=== PATIENT | female | born 1990 | race Caucasian/White ===

== ENCOUNTER 2020-05-02 01:20 | Inpatient (IN) | payer OTHER, SELFPAY ==
[2020-05-02] VITALS (176 sets, daily range): BP systolic 89–142; BP diastolic 47–110; PULSE 79–130; RESP 18; TEMP 36.3–37.4; O2SAT 94–100; BMI 37.3
--- NOTE | 2020-05-02 01:59 | LDADM ---
This patient, Priya Guan, was admitted to Labor/Delivery/Recovery 103 on 05/02/20 at 01:20. Plans for labor, pain management and were discussed with patient. Patient/family oriented to hospital policies and general routines including ID bracelet, bed and alarms, visiting hours, pain management, procedures, bathroom and other care routines, personal items, smoking policy, room service/diet and guest tray routines, infant security routines, and visiting hours. Patient/Family are encouraged to report perceived risks to care and to ask questions if they do not understand what they are told or what they should do. See OBIX for further documentation.
[2020-05-02 02:23] LABS: Basophils Percent Auto 0.2 % (0.2-1.2); Eosinophils Percent Auto 0.3 % (0-4.4); Hematocrit 34.2 % (37.0-47.0); Hemoglobin 11.5 g/dL (12.0-15.0); Immature Granulocyte Absolute 0.02 K/mm3 (0.00-0.031); Immature Granulocyte Percent A 0.2 % (0-0.5); Lymphocytes Absolute Auto 1.48 K/mm3 (0.9-3.2); Lymphocytes Percent Auto 15.2 % (18.3-44.2); Mean Corpuscular HGB Conc 33.6 g/dl (32-36); Mean Corpuscular Volume 83.2 fl (80-100); Mean Platelet Volume 10.3 fl (7.4-10.4); Monocytes Absolute Auto 0.7 K/mm3 (0.1-0.6); Monocytes Percent Auto 7.4 % (2.6-8.5); Neutrophils Absolute Auto 7.5 K/mm3 (1.3-6.7); Neutrophils Percent Auto 76.7 % (45.5-73.1); Platelet Count Result 224 k/mm3 (150-375); Red Blood Count 4.11 M/mm3 (4.2-5.4); Red Cell Distribution Width 13.6 % (11.5-14.5); White Blood Count 9.7 K/mm3 (4.5-10.0)
[2020-05-02] MEDS: LACTATED RINGERS 1,000 ML 125 ML IV CONT ×2 (02:26→04:29)
--- NOTE | 2020-05-02 02:54 | WPDANESEPPF ---
Anes - Initial Pre Proc Eval Procedure: labor epidural Date/Time: 05/02/20 02:54 Surgeon: Kaushik Breaux MD Pre Op Diagnosis: labor pain Pre Op Diagnosis: Leaking, Contractions Patient Data Age: 30 Gender: F Height: 1.63 m Weight: 98.5 kg Last Vital Signs Pulse 97 05/02/20 02:51 BP 132/77 05/02/20 02:51 Pulse Ox 100 05/02/20 02:53 Allergies Allergy/AdvReac Type Severity Reaction Status Date / Time doxycycline Allergy Hives Verified 04/10/20 13:33 ibuprofen Allergy Swelling Verified 04/10/20 13:33 of Lip/Tongue/Throat Home Medications Medication Instructions Recorded Confirmed Type PNV cmb#95-ferrous fumarate-FA 1 tablet PO DAILY 04/10/20 04/10/20 History [] escitalopram oxalate [Lexapro] 10 mg PO DAILY 04/10/20 04/10/20 History Laboratory Tests 05/02/20 05/02/20 02:16 02:16 WBC 9.7 K/mm3 K/mm3 (4.5-10.0) RBC 4.11 M/mm3 L M/mm3 (4.2-5.4) Hgb 11.5 g/dL L g/dL (12.0-15.0) Hct 34.2 % L % (37.0-47.0) MCV 83.2 fl fl (80-100) MCH 28.0 pg pg (26-34) MCHC 33.6 g/dl g/dl (32-36) RDW 13.6 % % (11.5-14.5) Plt Count 224 k/mm3 k/mm3 (150-375) MPV 10.3 fl fl (7.4-10.4) Immature Gran % (Auto) 0.2 % % (0-0.5) Neut % (Auto) 76.7 % H % (45.5-73.1) Lymph % (Auto) 15.2 % L % (18.3-44.2) [place] % (Auto) 7.4 % % (2.6-8.5) Eos % (Auto) 0.3 % % (0-4.4) Baso % (Auto) 0.2 % % (0.2-1.2) Lymph # (Auto) 1.48 K/mm3 K/mm3 (0.9-3.2) [place] # (Auto) 0.7 K/mm3 H K/mm3 (0.1-0.6) Eos # (Auto) 0.0 K/mm3 K/mm3 (0-0.3) Baso # (Auto) 0.0 K/mm3 K/mm3 (0.0-0.1) Abs Immat Gran (auto) 0.02 K/mm3 K/mm3 (0.00-0.031) Absolute Neuts (auto) 7.5 K/mm3 H K/mm3 (1.3-6.7) Absolute Nucleated RBC 0.0 K/mm3 K/mm3 (0.0-0.012) Nucleated RBC % 0.0 % % (0.0-0.2) RPR Pending Patient hx anesthesia problems: none Family hx anesthesia problems: none [facility] Past Medical History Medical History (Updated 05/02/20 @ 02:53 by Vishnu Olivera DO) Anxiety Depression Family History Family History (Updated 04/10/20 @ 13:44 by Willie Joseph RN) Father Hypertension High cholesterol Grandparent Diabetes mellitus Social History Social History Smoking status: Never smoker Second hand tobacco smoke exposure: No Substance use: never Gender identity (if verbalized by the patient): Female Spiritual care concerns: No Anes - Eval Final PreProcedure Day of Procedure 05/02/20 02:54 Patient weight: obese ASA classification: II Anesthesia type and monitoring: regional epidural Informed Consent: The patient's anesthetic plan and its attendant risks and benefits were discussed with the patient/family/POA. Questions were solicited and answers provided to the satisfaction of the patient/family/POA.
[2020-05-02 06:50] LABS: Rapid Plasma Reagin Non-Reactive (NonReactive)
--- NOTE | 2020-05-02 06:50 | WPDOBADMIT ---
Obstetrics - Admit Note Admission Note: record reviewed. Additions to the history and/or subsequent changes in the physical findings follow. 30 y/o at 39 3/7 weeks here after a gush of fluid last evening. SROM diagnosed. She was admitted and has received an epidural for pain control. GBS neg. AVSS NST reactive TOCO: contractions every 2-4 min ABD soft, nontender, gravid, vertex EXT nontender Cervix 6-7/90/-1. Vertex. A: IUP at term with SROM / labor. P: Augment labor as needed. Anticipate .
[2020-05-02] MEDS: OXYTOCIN 30 UNITS/NS 500 ML 30 UNITS/500 ML BAG IV CONT (08:26)
[2020-05-02] MEDS: OXYTOCIN 30 UNITS/NS 500 ML 30 UNITS/500 ML BAG 125 UNITS IV CONT (13:00)
--- NOTE | 2020-05-02 13:24 | PM.OBPRVD ---
OB - Delivery Note Procedure Delivery date: 05/02/20 Procedure: Excision of perineal skin tag Induction method: none Delivery augmentation: pitocin Delivery monitor: external FHT, external uterine and internal uterine Route of delivery: Laceration Description: Perineal - 2nd Degree Delivery repair: vicryl (3-0) Specimen: Yes (cord blood, perineal skin tag) Quantitative Blood Loss (ml): 260 Anesthesia type: Epidural Disposition: PACU Complications: None Narrative: 30 y/o at 39 3/7 weeks gestation who presented to the hospital after a gush of fluid. SROM was diagnosed. She received an epidural for pain control. Oxytocin was administered intravenously for labor augmentation. Amniotomy of a forebag was performed with return of clear fluid. Her labor progressed and her cervix dilated completely. She pushed with good effort and delivered the 's head to the perineum and the nuchal cord x 2 was splinted. The body delivered and the cord was reduced. The nose and mouth were bulb suctioned. After a delay, the cord was clamped and cut. The was handed off the field. Cord blood was collected. The placenta delivered spontaneously and was grossly normal in appearance. The usual 3 vessel cord was noted. A second degree midline perineal laceration was sustained. This was reapproximated using 3 0 Vicryl in the usual layered fashion. Excellent hemostasis resulted as did excellent reapproximation of the normal anatomy. An 8mm flesh-colored skin tag on the left perineum was sharply excised. A single, interrupted suture of the same material was used to reapproximate the wound edges. Needle and instrument counts were correct. The patient was taken to recovery room in stable condition. The infant went to the nursery in stable condition. I was present and scrubbed for the entire delivery. Baby Date of : 05/02/20 Time of : 12:09 Weeks of gestation at delivery: 39 Infant gender: Female Weight (pounds): 8 Weight (ounces): 4 presentation: vertex position: Left Occiput Anterior Placenta delivery description: Spontaneous and Normal Configuration cord vessel description: 3 Vessels, Nuchal Cord (x2) and Delayed Cord Clamping score one minute: 9 score five minutes: 9
[2020-05-02] MEDS: ACETAMINOPHEN 325 MG TABLET 650 MG PO ×2 (14:35→19:42)
[2020-05-02] MEDS: BENZOCAINE 20% AER SPR (*SP) 56 GM CAN 1 SPRAY TOPICAL (14:36)
[2020-05-02] MEDS: WITCH HAZEL 40 PADS 1 PAD TOPICAL (14:37)
--- NOTE | 2020-05-02 15:38 | PC.NURSE ---
Patient transferred to post room #291 via wheelchair. Support person present. Oriented to unit, room, information board, rooming in, admission packet and security measures. Patient verbalizes understanding.
--- NOTE | 2020-05-02 17:26 | PM.OBDSVD ---
DS: Admitting Diagnosis Admitting Diagnosis Admitting Diagnosis: IUP at 39 3/7 weeks SROM DS: Discharge Diagnosis Discharge Diagnosis (1) (normal spontaneous vaginal delivery): Code(s): O80 - Encounter for full-term uncomplicated delivery Status: Acute OB - DS: Summary OB Procedures : None OB Procedures Intrapartum: Spontaneous Vag Delivery OB Procedures: : None DS: Data Data Completed and Pending Labs on day of discharge: Labs from last 24 hours 05/02/20 05/02/20 05/02/20 02:16 02:16 02:16 WBC 9.7 RBC 4.11 L Hgb 11.5 L Hct 34.2 L MCV 83.2 MCH 28.0 MCHC 33.6 RDW 13.6 Plt Count 224 MPV 10.3 Immature Gran % (Auto) 0.2 Neut % (Auto) 76.7 H Lymph % (Auto) 15.2 L [place] % (Auto) 7.4 Eos % (Auto) 0.3 Baso % (Auto) 0.2 Lymph # (Auto) 1.48 [place] # (Auto) 0.7 H Eos # (Auto) 0.0 Baso # (Auto) 0.0 Abs Immat Gran (auto) 0.02 Absolute Neuts (auto) 7.5 H Absolute Nucleated RBC 0.0 Nucleated RBC % 0.0 RPR Non-reactive Blood Type A Positive Antibody Screen Negative Discharge Plan Discharge Attending physician on discharge: Kaushik Breaux Discharging Clinician: Kaushik Breaux Patient Disposition: Home, Self-Care Activity: pelvic rest Diet: regular Discharge Instructions: Call or return if temperature above 100.4? F, increased abdominal pain, increased vaginal bleeding or any new problems. Stand Alone Forms: General Discharge Information Follow-up/Referrals: Kaushik Breaux MD [Physician] - 6 Weeks Discharge Medications: New hydrocodone-acetaminophen 5-325 mg tablet 1 tablet PO Q4H Qty: 20 RF: 0 ferrous sulfate 325 mg (65 mg iron) tablet 325 mg PO DAILY Qty: 30 RF: 0 No Action PNV cmb#95-ferrous fumarate-FA [] 28 mg iron- 800 mcg Tablet 1 tablet PO DAILY RF: 0 escitalopram oxalate [Lexapro] 10 mg Tablet 10 mg PO DAILY RF: 0 Date of admission: 05/02/20 01:20 Primary Care Provider: Mj,Jenny Admitting Provider: Kaushik Breaux Attending physician on admission: Kaushik Breaux Condition: Stable
[2020-05-03 04:50] VITALS: BP 121/74; PULSE 102; RESP 18; TEMP 36.6; O2SAT 100
[2020-05-03] MEDS: ACETAMINOPHEN 325 MG TABLET 650 MG PO (05:06)
[2020-05-03 05:20] LABS: Hematocrit 28.1 % (37.0-47.0); Hemoglobin 9.3 g/dL (12.0-15.0)
[2020-05-03 07:25] VITALS: BP 114/74; PULSE 92; RESP 18; TEMP 37.1; O2SAT 97
--- NOTE | 2020-05-03 09:07 | WPDANLDPN2 ---
Anes-Prog Note L&D Date/Time: 05/03/20 09:07 Comfortable throughout: labor and delivery Neuraxial method: epidural Epidural/Spinal procedure site: clean & non-tender Neuro status: Neuro function grossly intact. Cardiovascular status: normal Respiratory status: normal Airway patency: baseline Mental status: baseline Post-Op hydration status: normal Vital Signs: Last Vital Signs Temp 36.6 C 05/03/20 04:50 Pulse 102 H 05/03/20 04:50 Resp 18 05/03/20 04:50 BP 121/74 05/03/20 04:50 Pulse Ox 100 05/03/20 04:50 Pain score (VAS): 03/09 Post-procedural complaints: none Patient feedback: Patient satisfied with anesthetic care.
[2020-05-03] MEDS: MULTIVIT/MIN/PREN/FOL AC/IRON TABLET 1 TAB PO (09:43)
[2020-05-03] MEDS: POLYSACCHARIDE IRON COMPLEX 150 MG CAPSULE PO (09:43)
[2020-05-03] MEDS: DOCUSATE SODIUM 100 MG CAPSULE PO (09:43)
[2020-05-03] MEDS: BENZOCAINE 20% AER SPR (*SP) 56 GM CAN 1 SPRAY TOPICAL (09:44)
[2020-05-03] MEDS: WITCH HAZEL 40 PADS 1 PAD TOPICAL (09:44)
[2020-05-03 10:00] VITALS: PULSE 92; RESP 18; O2SAT 97
[2020-05-03] MEDS: HYDROcodone/acetaminophen (*CRX) 5-325 MG TABLET 1 TAB PO ×2 (10:02→15:26)
[2020-05-03] MEDS: ESCITALOPRAM OXALATE 10 MG TABLET PO (10:02)
--- NOTE | 2020-05-03 11:22 | PM.OBPNVD ---
OB - PN: Subj Subjective Date/time seen: 05/03/20 11:22 Narrative: Pain OK. Thinks she would like to go home. OB - PN: Obj Data Labs CBC & Chem 7: 05/03/20 05:03 Labs: Laboratory Results - last 24 hr 05/03/20 05:03 Hgb 9.3 L Hct 28.1 L OB - PN A/P Plan Comments: A: PPD#1, doing well. P: Home to f/u 6 weeks. Exam Psych: Other: AVSS ABD soft, nontender, fundus firm EXT nontender
[2020-05-03 12:40] VITALS: BP 110/70; PULSE 86; RESP 18; TEMP 36.9; O2SAT 96
[2020-05-06 08:59] VITALS: BP 114/62; PULSE 81; RESP 20; TEMP 36.8; O2SAT 99
== END 2020-05-03 18:13 | disposition home or self-care (01) | DRG 807 ==
LOC: ANHLDR 01:28 → ANHOB2 16:09
PROVIDERS: Admitting Provider Obstetrics & Gynecology; PCP Nurse Practitioner Family; Visit Provider Obstetrics & Gynecology
DX: O99.72 Diseases of the skin and subcutaneous tissue complicating childbirth (principal); Z37.0 Single live birth; Z3A.39 39 weeks gestation of pregnancy; N90.89 Other specified noninflammatory disorders of vulva and perineum; O99.214 Obesity complicating childbirth; E66.9 Obesity, unspecified; O70.1 Second degree perineal laceration during delivery; O69.81X0 Labor and delivery complicated by cord around neck, without compression, not applicable or unspecified; O36.8330 Maternal care for abnormalities of the fetal heart rate or rhythm, third trimester, not applicable or unspecified; O77.0 Labor and delivery complicated by meconium in amniotic fluid; O99.344 Other mental disorders complicating childbirth; F41.8 Other specified anxiety disorders
CPT/HCPCS: 36415; 84112; 85014; 85018; 85025; 86592; 86850; 86900; 86901; 88305; A9270; J2590; J2795; J7120

== ENCOUNTER 2020-05-07 13:33 | Outpatient (RCR) | payer OTHER, SELFPAY ==
--- NOTE | 2020-05-07 15:44 | PC.NURSE ---
IN 1005 OUT 1055 HISTORY: Pt. delivered at [facility] at 39 weeks. had no complications after delivery. Mother had no complications after delivery. is now 4 days/weeks old. appears to be well cared for. Infant will be seen by ICP at 1 week. Pt. visit after follow up. Mother reports: She had difficulties with latch from the first feeding and was given a nipple shield. Mother continues to use shield each feeding, will be supplemented EBM/formula by FOB while mother is pumping. Mother's milk is in and feels infant is more awake and eagerly latching. Mother is unsure if she should continue to supplement or if she can wean from shield. Mother wishes: Discontinue supplementation and nipple shield use. Currently at 6 wets per day and 6 yellow seedy stools per day. weight: 8#3 Last Weight: 8#1 OBSERVATION: Mother is engorged, demonstrated self expression before putting to breast to soften breast to obtain a deep latch. Assisted with infant to breast. Reviewed positioning/alignment in cross cradle, holding breast in U hold and guided asymmetrical latch on. Infant was able to latch correctly within a few attempts without shield. Infant nursed eagerly, with steady draws and frequent swallowing noted. Infant quickly began to slow with long pausing. Suggested to stimulate while feeding to keep awake and nursing effectively for increased stimulation and increased intake. Infant responded with burst of effective nursing with intermittent long pausing. Discussed how infant suck swallow relates to infant intake, and milk supply and well as maintaining deep latch. Reviewed signs of a correct latch, effective nursing and suck swallow ratio. Infant was able to maintain latch. Mother reported tenderness at times, infant had slipped to shallow latch. Demonstrated how to adjust latch more deeply while feeding. Mother quickly reports she can feel infant is latched more deeply and has minimal tenderness. Mother was able to switch infant to right breast and latch infant correctly without assist. Infant had an effective feeding for 45 minutes on both breasts and was content and sleeping when done with feeding. Parents both state this is one of 's best feedings. Suggested to hold on supplementation if is content, allow infant to feed on both breasts each feeding up to 40-50 minutes. PLAN: Mother will follow above feeding plan using techniques for deeper latch and keeping awake and effectively feeding each feeding. Mother will initiate pumping after feedings to soften if needed and offering EBM when does not settle after 40 minutes of feeding. Mother will call with further questions or concerns. Follow up phone call scheduled for Tuesday. Initialized on 05/07/20 12:50 - END OF NOTE PLAN: Mother will follow above feeding plan using techniques for deeper latch. Mother will call with further questions or concerns. Follow up visit/phone call scheduled for ///////
== END 2020-07-07 07:43 | disposition home or self-care (01) ==
LOC: ANHOBOP 13:33
PROVIDERS: PCP Nurse Practitioner Family; Visit Provider Pediatrics
DX: Z39.1 Encounter for care and examination of lactating mother (principal)
CPT/HCPCS: 99212; G0463

== ENCOUNTER 2021-09-28 18:51 | Emergency (ER) | payer OTHER, SELFPAY ==
[2021-09-28 19:01] VITALS: BP 125/68; PULSE 86; RESP 16; TEMP 37.1; O2SAT 100
--- NOTE | 2021-09-28 19:04 | ED.URI ---
HPI - URI/Sore Throat General Chief Complaint: Upper Respiratory Infection Stated Complaint: Cough Time Seen by Provider: 09/28/21 19:04 Source: patient and RN notes reviewed Mode of arrival: ambulatory Limitations: no limitations History of Present Illness HPI Narrative: 31-year-old female presented for complaint of intermittent episodes of cough and chest tightness with exertion for the last 2 days. Cough is nonproductive. Using albuterol inhaler more often, up to 3 times yesterday. She denies shortness of breath, wheezing, nausea, vomiting, fevers or chills. Endorses 10 days ago she tested positive for COVID, symptoms were mild at that time and did not have cough. States similar symptoms occurred after viral infection Mar 2021, for which she took abx and steroids and symptoms improved. MD elicited complaint: cough Related Data Home Medications Medication Instructions Recorded Confirmed albuterol sulfate 90 mcg/actuation 2 puff inhalation DIRECTED 09/28/21 09/28/21 aerosol inhaler venlafaxine 75 mg capsule,extended 75 mg PO DAILY 09/28/21 09/28/21 release 24 hr Allergies Allergy/AdvReac Type Severity Reaction Status Date / Time doxycycline Allergy Hives Verified 09/28/21 18:53 ibuprofen Allergy Swelling Verified 09/28/21 18:53 of Lip/Tongue/Throat Review of Systems Review of Systems: CONSTITUTIONAL: Denies malaise, chills, sweats, fever EYES: Denies visual changes, redness, or discharge ENT: Denies rhinorrhea, congestion, sinus pain, otalgia, sore throat CARDIOVASCULAR: Denies chest pain, palpitations, edema RESPIRATORY: Denies dyspnea SKIN: Denies rash or itching MUSCULOSKELETAL: Denies myalgia NEUROLOGIC: Denies headache PMFSH Past Medical History Medical History Anxiety Depression Family History Family History Father Hypertension High cholesterol Grandparent Diabetes mellitus Social History Social History Smoking status: Never smoker Second hand tobacco smoke exposure: No Substance use: never Gender identity (if verbalized by the patient): Female Spiritual care concerns: No Exam Narrative: GENERAL: well-appearing EYES: conjunctivae clear ENT: Mucous membranes moist. CHEST: Clear to auscultation, breath sounds equal. No wheezing, rhonchi, rales, or stridor. No respiratory distress, speaks in full sentences. HEART: Regular rate and rhythm. No murmur heard. SKIN: Warm, dry, no rash. NEURO: Alert and oriented x3. PSYCH: Normal mood and affect Course Course Emergency Course: Patient is aware of diagnosis, understands and agrees to treatment plan. Anticipatory guidance given. Patient agrees to follow-up as directed and is aware of reasons to seek care at the emergency department. Portions of this record may have been created with voice recognition software Level of Care: Express Care Visit Vital Signs Vital signs: Vital Signs Temperature 98.7 F 09/28/21 19:01 Pulse Rate 86 09/28/21 19:01 Respiratory Rate 16 09/28/21 19:01 Blood Pressure 125/68 09/28/21 19:01 Pulse Oximetry 100 09/28/21 19:01 Oxygen Delivery Room Air 09/28/21 19:01 Temperature 98.7 F 09/28/21 19:01 Pulse Rate 86 09/28/21 19:01 Respiratory Rate 16 09/28/21 19:01 Blood Pressure 125/68 09/28/21 19:01 Pulse Oximetry 100 09/28/21 19:01 Oxygen Delivery Room Air 09/28/21 19:01 reviewed MDM - URI/Sore Throat MDM Narrative Medical decision making narrative: Advised supportive measures, reviewed Rx's, and signs/symptoms to go to the ER. Pt is appropriate for outpt treatment and f/u. Differential Diagnosis Differential diagnosis: Likely upper respiratory infection, sinusitis and viral infection Discharge Plan Discharge Clinical Impression: Bronchoconstriction Patient
== END 2021-09-28 19:18 | disposition home or self-care (01) ==
PROVIDERS: Emergency Provider Nurse Practitioner Family; PCP Family Medicine
DX: J98.01 Acute bronchospasm (principal); F41.9 Anxiety disorder, unspecified; F32.A Depression, unspecified
CPT/HCPCS: 99213; G0463

== ENCOUNTER 2021-09-29 18:26 | Emergency (ER) | payer OTHER, SELFPAY ==
--- NOTE | ~2021-09-29 | CT_ITS ---
EXAMINATION: CTA chest PE protocol DATE: 09/29/2021 20:50 INDICATION: SOA TECHNIQUE: Computed tomography angiography (CTA) of the chest was performed with 100 mL Omnipaque-350 intravenous contrast timed to evaluate the pulmonary arteries. Coronal maximum intensity projection 3D-reconstructions were created by the technologist. The dose-length product (DLP) was 225.36 mGy-cm. Automated exposure control and iterative reconstruction technique were employed. COMPARISON: X-ray chest, same date. FINDINGS: Lung parenchyma and airways: Mild dependent atelectasis. Pleura: Unremarkable. Thoracic inlet, axillae and chest wall: Unremarkable. Thoracic aorta: Normal. Mediastinum: Normal. Heart and pericardium: Normal. Coronary artery calcifications: Absent. Upper abdomen: No significant finding. Bones: No acute osseous finding. Pulmonary arteries: Study quality: Adequate. No pulmonary emboli detected. IMPRESSION: No CT evidence of acute pulmonary embolus. Reviewed, dictated and finalized at location K.
--- NOTE | ~2021-09-29 | XR_ITS ---
EXAMINATION: XR chest 2V Exam Date/Time: 09/29/2021 18:50 CDT HISTORY: COVID+ 11 DAYS AGO, INCREASED SOB,CHEST PRESSURE/RT ADB PAIN Comparison: None available. RESULT: Lines, tubes, and devices: None. Lungs and pleura: Clear. Cardiomediastinal silhouette: Normal. Other: No acute osseous or upper abdominal finding. IMPRESSION: No acute cardiopulmonary process. Reviewed, dictated and finalized at location K.
[2021-09-29 18:30] VITALS: BP 134/83; PULSE 125; RESP 18; TEMP 36.6; O2SAT 99
--- NOTE | 2021-09-29 18:30 | ECG_ITS ---
Measurements Intervals [place] Rate: 118 P: 51 AL: 102 QRS: 21 QRSD: 84 T: -1 QT: 340 QTc: 477 Interpretive Statements SINUS TACHYCARDIA WITH SHORT AL INTERVAL POSSIBLE LEFT ATRIAL ENLARGEMENT NONSPECIFIC ST & T-WAVE ABNORMALITY BORDERLINE ECG NO PREVIOUS ECG AVAILABLE FOR COMPARISON Electronically Signed On 09-30-2021 12:20:04 CDT by Jorge Alfaro M.D.
[2021-09-29 18:48] LABS: Basophils Percent Auto 0.2 % (0.2-1.2); Hematocrit 42.7 % (37.0-47.0); Hemoglobin 14.5 g/dL (12.0-15.0); Immature Granulocyte Absolute 0.02 K/mm3 (0.00-0.031); Immature Granulocyte Percent A 0.3 % (0-0.5); Lymphocytes Absolute Auto 0.73 K/mm3 (0.9-3.2); Lymphocytes Percent Auto 11.8 % (18.3-44.2); Mean Corpuscular Hemoglobin 28.7 pg (26-34); Mean Corpuscular Volume 84.6 fl (80-100); Mean Platelet Volume 9.1 fl (7.4-10.4); Monocytes Absolute Auto 0.1 K/mm3 (0.1-0.6); Monocytes Percent Auto 1.6 % (2.6-8.5); Neutrophils Absolute Auto 5.3 K/mm3 (1.3-6.7); Neutrophils Percent Auto 86.1 % (45.5-73.1); Platelet Count Result 302 k/mm3 (150-375); Red Blood Count 5.05 M/mm3 (4.2-5.4); Red Cell Distribution Width 12.7 % (11.5-14.5); White Blood Count 6.2 K/mm3 (4.5-10.0)
[2021-09-29 18:56] VITALS: BP 130/70; PULSE 107; RESP 17; O2SAT 96
[2021-09-29 18:58] LABS: Prothrombin Time 13.1 Seconds (11.1-14.7)
[2021-09-29 18:59] VITALS: O2SAT 96
[2021-09-29 18:59] LABS: Partial Thromboplastin Time 24.2 SECONDS (22.3-36.8)
[2021-09-29 19:09] LABS: Alanine Aminotransferase 20 U/L (6-35); Albumin Level 5.2 g/dL (3.5-5.1); Alkaline Phosphatase 75 U/L (38-126); Anion Gap 14 mmol/L (8-16); Aspartate Amino Transferase 26 U/L (14-36); Bilirubin,Total 0.3 mg/dL (0.2-1.3); Blood Urea Nitrogen 12 mg/dL (7-17); Carbon Dioxide 24 mmol/L (22-30); Chloride 102 mmol/L (98-107); Estimated CRCL calculation 115 ml/min; Estimated Glomerular Filt Rate > 60; Glucose 157 mg/dL (65-110); Lipase 90 U/L (23-300); Potassium 3.8 mmol/L (3.4-5.0); Sodium 140 mmol/L (137-145)
[2021-09-29 19:46] LABS: Troponin I < 0.012 ng/mL (0.000-0.034)
--- NOTE | 2021-09-29 19:55 | ED.SOB ---
HPI - SOB/Dyspnea General Chief Complaint: Shortness of Breath/Dyspnea Stated Complaint: CP, abdominal pain, sob Time Seen by Provider: 09/29/21 19:02 History of Present Illness HPI Narrative: Patient is a 31-year-old female who presents ER with shortness of breath and abdominal pain. Patient was diagnosed with COVID-19 11 days ago. Over the last 3 days she has felt more chest tightness and shortness of breath and has been using her inhaler at home. Today she started having pain in her right lower chest and right upper quadrant of the abdomen. No radiation. Not associated with eating or drinking. Notices it more when she is doing mechanical movements of the right side of her body. Denies trauma. Patient does report occasional cough that is nonproductive. No lower extremity swelling or calf pain. Related Data Home Medications Medication Instructions Recorded Confirmed albuterol sulfate 90 mcg/actuation 2 puff inhalation DIRECTED 09/28/21 09/28/21 aerosol inhaler venlafaxine 75 mg capsule,extended 75 mg PO DAILY 09/28/21 09/28/21 release 24 hr Allergies Allergy/AdvReac Type Severity Reaction Status Date / Time doxycycline Allergy Hives Verified 09/28/21 18:53 ibuprofen Allergy Swelling Verified 09/28/21 18:53 of Lip/Tongue/Throat Review of Systems Review of Systems: All systems reviewed & are unremarkable except as noted in HPI and below Constitutional: Constitutional: Denies chills, Denies fatigue and Denies fever(s) ENT: Denies nasal congestion and Denies sore throat Cardiovascular: Cardiovascular: Reports chest pain, Denies rapid heart rate and Denies radiating jaw, neck or arm pain Respiratory: Respiratory: Denies chest congestion, Reports cough, Reports dyspnea and Reports wheezing Gastrointestinal: Gastrointestinal: Reports abdominal pain, Denies nausea and Denies vomiting Genitourinary: Genitourinary: Denies nocturia and Denies dysuria [facility] Past Medical History Medical History (Updated 09/29/21 @ 21:37 by Win Pat MD) Anxiety Depression Exercise-induced asthma Surgical History Surgical History (Updated 09/29/21 @ 19:56 by Win Pat MD) History of appendectomy Family History Family History Father Hypertension High cholesterol Grandparent Diabetes mellitus Social History Social History Smoking status: Never smoker Second hand tobacco smoke exposure: No Substance use: never Gender identity (if verbalized by the patient): Female Spiritual care concerns: No Exam Narrative: GENERAL: Well-appearing, well-nourished, and in no acute distress. HEAD: Normocephalic, atraumatic. EYES: PERRL and EOMI. CHEST: Clear to auscultation. No respiratory distress. No reproducible chest wall tenderness. HEART: Tachycardic and regular. Normal peripheral pulses. ABDOMEN: Soft, nontender, nondistended. EXTREMITIES: Normal range of motion. No edema. SKIN: Warm, dry, no rash. NEURO: Alert and oriented x3. PSYCH: Normal mood and affect. Course Course Emergency Course: Patient resting comfortably. Informed of results. Tachycardia improved with fluids. Discharge home. Recommend outpatient ultrasound to rule out gallstones. LFTs normal. Vital Signs Vital signs: Vital Signs Temperature 98 F 09/29/21 18:30 Pulse Rate 125 H 09/29/21 18:30 Respiratory Rate 18 09/29/21 18:30 Blood Pressure 134/83 09/29/21 18:30 Pulse Oximetry 99 09/29/21 18:30 Oxygen Delivery Room Air 09/29/21 18:30 Temperature 98 F 09/29/21 18:30 Pulse Rate 107 H 09/29/21 18:56 Respiratory Rate 17 09/29/21 18:56 Blood Pressure 130/70 09/29/21 18:56 Pulse Oximetry 96 09/29/21 18:59 Oxygen Delivery Room Air 09/29/21 18:59 MDM - SOB/Dyspnea Lab Data Result diagrams: 09/29/21 18:38 09/29/21 18:38
[2021-09-29 21:55] VITALS: BP 120/72; PULSE 72; RESP 16; O2SAT 98
[2021-09-29 22:06] LABS: Troponin I < 0.012 ng/mL (0.000-0.034)
== END 2021-09-29 21:57 | disposition home or self-care (01) ==
PROVIDERS: Emergency Medicine; Emergency Provider Emergency Medicine; PCP Family Medicine
DX: R07.81 Pleurodynia (principal); R10.11 Right upper quadrant pain; Z86.16 Personal history of COVID-19; F41.9 Anxiety disorder, unspecified; F32.A Depression, unspecified; J45.990 Exercise induced bronchospasm
CPT/HCPCS: 36415; 71046; 71275; 80053; 81025; 83690; 84484; 85025; 85380; 85610; 85730; 93005; 99284; Q9967

== ENCOUNTER 2022-01-31 15:02 | Emergency (ER) | payer OTHER, SELFPAY ==
--- NOTE | ~2022-01-31 | XR_ITS ---
EXAMINATION: XR chest 2V Exam Date/Time: 01/31/2022 15:30 TAKER OFF HISTORY: sometimes prod cough x 9 days non smoker pt shielded Comparison: 09/29/2021. RESULT: Lines, tubes, and devices: None. Lungs and pleura: Clear. Cardiomediastinal silhouette: Stable. Other: No acute osseous or upper abdominal finding. IMPRESSION: No acute cardiopulmonary process. Reviewed, dictated and finalized at location K. R OFF
--- NOTE | 2022-01-31 15:06 | ED.URI ---
HPI - URI/Sore Throat General Chief Complaint: Upper Respiratory Infection Stated Complaint: cough Time Seen by Provider: 01/31/22 15:08 Source: patient and RN notes reviewed Mode of arrival: ambulatory Limitations: no limitations History of Present Illness HPI Narrative: 31-year-old female presents with concern for cough. Reports 7 day history of persistent cough. Reports she was diagnosed with influenza. She reports she has been taking prednisone for 3 days, started a Z-Dima yesterday, has been using albuterol without relief of her cough. MD elicited complaint: cough and sore throat Related Data Home Medications Medication Instructions Recorded Confirmed albuterol sulfate 90 mcg/actuation 2 puff inhalation DIRECTED 09/28/21 01/31/22 aerosol inhaler venlafaxine 75 mg capsule,extended 75 mg PO DAILY 09/28/21 01/31/22 release 24 hr azithromycin 250 mg tablet 250 mg PO DAILY 01/31/22 01/31/22 prednisone 20 mg tablet 20 mg PO DAILY 01/31/22 01/31/22 Allergies Allergy/AdvReac Type Severity Reaction Status Date / Time doxycycline Allergy Hives Verified 01/31/22 15:04 ibuprofen Allergy Swelling Verified 01/31/22 15:04 of Lip/Tongue/Throat Review of Systems Review of Systems: CONSTITUTIONAL: Reports malaise, low-grade fever. EYES: Denies visual changes, redness, or discharge. ENT: Reports rhinorrhea, congestion, sore throat. CARDIOVASCULAR: Denies chest pain, palpitations, or edema. RESPIRATORY: Reports persistent cough, episodic shortness of breath GASTROINTESTINAL: Denies abdominal pain, nausea, vomiting, diarrhea SKIN: Denies rash or itching. MUSCULOSKELETAL: Denies myalgia. NEUROLOGIC: Denies headache. All systems reviewed & are unremarkable except as noted in HPI and below PMFSH Past Medical History Medical History (Updated 01/31/22 @ 16:11 by Marilyn Mcwilliams NP) Anxiety Depression Exercise-induced asthma Surgical History Surgical History (Updated 09/29/21 @ 19:56 by Win Pat MD) History of appendectomy Family History Family History Father Hypertension High cholesterol Grandparent Diabetes mellitus Social History Social History Smoking status: Never smoker Second hand tobacco smoke exposure: No Substance use: never Gender identity (if verbalized by the patient): Female Spiritual care concerns: No Comments At time of signature, agree with nursing past medical, surgical, social and family history. There is no relevant family history pertinent to the presenting complaint Exam Narrative: GENERAL: Well-appearing, well-nourished, and in no acute distress. HEAD: Normocephalic EYES: PERRLA, conjunctivae clear ENT: Nares clear, turbinates edematous and erythematous, clear discharge. Mucous membranes moist. TM pearly chinchilla with dull light reflex bilaterally; no tragal tenderness. Oropharynx not erythematous without lesions. Tonsils not enlarged and without exudate, no drooling, no hoarseness, no trismus, uvula midline. NECK: Supple. No lymphadenopathy CHEST: Clear to auscultation, breath sounds equal. No wheezing, rhonchi, rales, or stridor. No respiratory distress, speaks in full sentences. Cough noted HEART: Regular rate and rhythm. No murmur heard. SKIN: Warm, dry, no rash. NEURO: Alert and oriented x3. PSYCH: Normal mood and affect Course Course Emergency Course: Patient is aware of diagnosis, understands and agrees to treatment plan. Anticipatory guidance given. Patient agrees to follow-up as directed and is aware of reasons to seek care at the emergency department. Portions of this record may have been created with voice recognition software Level of Care: Express Care Visit Vital Signs Vital signs: Reviewed. MDM - URI/Sore Throat MDM Narrative Medical decision making narrative: Differential diagnosis considered: Jj virus, st
[2022-01-31 15:10] VITALS: BP 121/71; PULSE 114; RESP 16; TEMP 37.6; O2SAT 99
[2022-01-31 15:15] VITALS: PULSE 114; RESP 16; O2SAT 99
[2022-01-31 16:00] VITALS: PULSE 108; RESP 18; O2SAT 99
== END 2022-01-31 16:20 | disposition home or self-care (01) ==
PROVIDERS: Emergency Provider Nurse Practitioner
DX: J40 Bronchitis, not specified as acute or chronic (principal); F41.9 Anxiety disorder, unspecified; F32.A Depression, unspecified; J45.909 Unspecified asthma, uncomplicated
CPT/HCPCS: 71046; 87081; 87880; 94640; 99213; G0463

== ENCOUNTER 2023-01-04 16:01 | Inpatient (IN) | payer BC, SELFPAY ==
[2023-01-04] VITALS (15 sets, daily range): BP systolic 105–125; BP diastolic 59–78; PULSE 84–112; TEMP 36.6–37.2; BMI 36.1
--- NOTE | 2023-01-04 16:37 | P.PNAN_ITS ---
Anes - Eval Pre Procedure Procedure: labor epidural Date/Time: 01/04/23 16:37 Pre Op Diagnosis: Induction of Labor Patient Data Age: 32 Gender: F Height: Weight: Allergies Allergy/AdvReac Type Severity Reaction Status Date / Time doxycycline Allergy Hives Verified 01/31/22 15:04 ibuprofen Allergy Swelling Verified 01/31/22 15:04 of Lip/Tongue/Throat latex Allergy Itching Verified 12/17/22 14:28 adhesive AdvReac Itching Verified 12/17/22 14:28 Home Medications Medication Instructions Recorded Confirmed Type escitalopram oxalate 20 mg tablet 30 mg PO DAILY 12/17/22 12/17/22 History (Lexapro) vits no.126-ferrous fum 1 tablet PO DAILY 12/17/22 12/17/22 History 28 mg iron-folic acid 800 mcg tablet (Classic ) Patient hx anesthesia problems: none Family hx anesthesia problems: none Results Review: All pre-operative results and documents have been reviewed as part of the pre- operative evaluation. PMF Past Medical History Medical History Anxiety Depression Exercise-induced asthma Surgical History Surgical History History of appendectomy Family History Family History Father Hypertension High cholesterol Grandparent Diabetes mellitus Social History Social History Smoking status: Never smoker Second hand tobacco smoke exposure: No Substance use: never Gender identity (if verbalized by the patient): Female Spiritual care concerns: No Exam Day of Procedure 01/04/23 16:37 Patient weight: obese Heart: regular rate and rhythm Lungs: normal air movement Airway: Mallampati scale Neurological: alert and oriented
[2023-01-04] MEDS: DINOPROSTONE 10 MG VAG INSERT VAGINAL (16:51)
[2023-01-04 16:52] LABS: Basophils Percent Auto 0.1 % (0.2-1.2); Eosinophils Absolute Auto 0.1 K/mm3 (0-0.3); Eosinophils Percent Auto 0.7 % (0-4.4); Hemoglobin 10.9 g/dL (12.0-15.0); Immature Granulocyte Absolute 0.02 K/mm3 (0.00-0.031); Immature Granulocyte Percent A 0.3 % (0-0.5); Lymphocytes Absolute Auto 1.19 K/mm3 (0.9-3.2); Lymphocytes Percent Auto 17.7 % (18.3-44.2); Mean Corpuscular Hemoglobin 27.3 pg (26-34); Mean Corpuscular Volume 82.7 fl (80-100); Mean Platelet Volume 10.4 fl (7.4-10.4); Monocytes Absolute Auto 0.6 K/mm3 (0.1-0.6); Monocytes Percent Auto 9.1 % (2.6-8.5); Neutrophils Absolute Auto 4.9 K/mm3 (1.3-6.7); Neutrophils Percent Auto 72.1 % (45.5-73.1); Platelet Count Result 195 k/mm3 (150-375); Red Blood Count 3.99 M/mm3 (4.2-5.4); White Blood Count 6.7 K/mm3 (4.5-10.0)
--- NOTE | 2023-01-04 17:01 | LDADM ---
This patient, Priya Guan, was admitted to Labor/Delivery/Recovery 103 on 01/04/23 at 16:01. Plans for labor, pain management and were discussed with patient. Patient/family oriented to hospital policies and general routines including ID bracelet, bed and alarms, visiting hours, pain management, procedures, bathroom and other care routines, personal items, smoking policy, room service/diet and guest tray routines, infant security routines, and visiting hours. Patient/Family are encouraged to report perceived risks to care and to ask questions if they do not understand what they are told or what they should do. See OBIX for further documentation.
[2023-01-04] MEDS: AMPICILLIN 2 GM/NS 100 ML 2 GM/100 ML BAG IVPB (17:18)
[2023-01-04] MEDS: LACTATED RINGERS 1,000 ML 125 ML IV CONT (17:18)
[2023-01-04] MEDS: AMPICILLIN 1 GM/NS 50 ML 1 GM/50 ML BAG IVPB (21:12)
[2023-01-05] VITALS (179 sets, daily range): BP systolic 89–148; BP diastolic 46–94; PULSE 73–144; RESP 16–18; TEMP 36.2–37.3; O2SAT 86–100
[2023-01-05] MEDS: fentaNYL CITRATE INJ (*CRX) 100 MCG/2 ML VIAL 50 MCG IV PUSH (00:07)
[2023-01-05] MEDS: LACTATED RINGERS 1,000 ML 125 ML IV CONT ×3 (00:36→06:18)
[2023-01-05] MEDS: AMPICILLIN 1 GM/NS 50 ML 1 GM/50 ML BAG IVPB ×2 (01:45→06:19)
[2023-01-05] MEDS: OXYTOCIN 30 UNITS/NS 500 ML 30 UNITS/500 ML BAG IV CONT (03:02)
--- NOTE | 2023-01-05 08:32 | WPDOBADMIT ---
Obstetrics - Admit Note Admission Note: record reviewed. Additions to the history and/or subsequent changes in the physical findings follow. 32 y/o at 39 1/7 weeks gestation here for induction of labor. GBS pos. Cervidil overnight, has been withdrawn, now receiving oxytocin.. Had SROM clear fluid. Comfortable with epidural. Ampicillin IV for GBS. AVSS NST reactive TOCO: contractions every 2-3 min ABD soft, nontender, gravid, vertex EXT nontender Cervix complete / +2 A: IUP at term. GBS pos. P: Ampicillin. Begin pushing.
--- NOTE | 2023-01-05 09:07 | P.PCNOB_ITS ---
OB - Vaginal Delivery Note Procedure Delivery date: 01/05/23 Induction method: Per Cervidil Protocol Delivery augmentation: Pitocin Delivery monitor: External FHT, External Uterine and Internal Uterine Route of delivery: Episiotomy description: None Laceration Description: Perineal - 2nd Degree Delivery repair: vicryl (3-0) Specimen: Yes (cord blood) Quantitative Blood Loss (ml): 240 Anesthesia type: Epidural Complications: None Narrative: 32 y/o at 39 1/7 weeks gestation who presented to the hospital for induction of labor. She received ampicillin for GBS colonization. Cervidil was placed, then withdrawn the next morning. Oxytocin was administered intravenously. She had SROM with clear fluid. She received an epidural for pain control. Her labor progressed and her cervix dilated completely. She pushed with good effort and delivered the 's head to the perineum, followed by the body. The nose and mouth were bulb suctioned. After a delay, the cord was clamped and cut. The infant was handed off the field. Cord blood was collected. The placenta delivered spontaneously and was grossly normal in appearance. The usual 3 vessel cord was noted. A second degree midline perineal laceration was sustained. This was reapproximated using 3 0 Vicryl in the usual layered fashion. Excellent hemostasis resulted as did excellent reapproximation of the normal anatomy. Needle and instrument counts were correct. The patient was taken to recovery room in stable condition. The went to the nursery in stable condition. I was present and scrubbed for the entire delivery. [place] Baby Date of : 01/05/23 Time of : 08:47 Weeks of gestation at delivery: 39 gender: Male presentation: vertex position: Right Occiput Anterior Placenta delivery description: Spontaneous and Normal Configuration Cord Vessel Description: 3 Vessels and Delayed Cord Clamping score one minute: 8 score five minutes: 9
--- NOTE | 2023-01-05 09:09 | PM.OBDSVD ---
DS: Admitting Diagnosis Discharge Date 01/06/23 Admitting Diagnosis IUP at 39 1/7 weeks GBS pos DS: Discharge Diagnosis Discharge Diagnosis (1) (normal spontaneous vaginal delivery): Code(s): O80 - Encounter for full-term uncomplicated delivery Status: Acute (2) GBS (group B Streptococcus carrier), +RV culture, currently : Code(s): O99.820 - Streptococcus B carrier state complicating Status: Acute OB - DS: Summary OB Procedures : None OB Procedures Intrapartum: Spontaneous Vag Delivery and GBS prophylaxis OB Procedures: : None Peripartum Data Laceration Description: Perineal - 2nd Degree Episiotomy description: None Time Spent with Patient Time attestation: Total time spent providing and/or coordinating discharge services: DS: Data Data Completed and Pending Labs on day of discharge: Labs from last 24 hours 01/04/23 16:40 WBC 6.7 RBC 3.99 L Hgb 10.9 L D Hct 33.0 L MCV 82.7 MCH 27.3 MCHC 33.0 RDW 13.0 Plt Count 195 MPV 10.4 Immature Gran % (Auto) 0.3 Neut % (Auto) 72.1 Lymph % (Auto) 17.7 L Lipscomb % (Auto) 9.1 H Eos % (Auto) 0.7 Baso % (Auto) 0.1 L Lymph # (Auto) 1.19 Lipscomb # (Auto) 0.6 Eos # (Auto) 0.1 Baso # (Auto) 0.0 Abs Immat Gran (auto) 0.02 Absolute Neuts (auto) 4.9 Absolute Nucleated RBC 0.0 Nucleated RBC % 0.0 RPR Pending Blood Type A Positive Antibody Screen Negative Discharge Plan Discharge Attending physician on discharge: Kaushik Breaux Discharging Clinician: Kaushik Breaux Patient Disposition: Home, Self-Care Activity: pelvic rest Diet: regular Discharge Instructions: Call or return if temperature above 100.4? F, increased abdominal pain, increased vaginal bleeding or any new problems. Stand Alone Forms: General Discharge Information Follow-up/Referrals: Kaushik Breaux MD [Physician] - 6 Weeks Discharge Medications: New hydrocodone-acetaminophen 5-325 mg tablet 1 tablet PO Q4H PRN (Reason: pain) Qty: 20 0RF ferrous sulfate 325 mg (65 mg iron) tablet 325 mg PO DAILY Qty: 30 0RF Continued escitalopram oxalate [Lexapro] 20 mg Tablet 30 mg PO DAILY Classic 28 mg iron- 800 mcg Tablet 1 tablet PO DAILY famotidine [Pepcid] 20 mg Tablet 20 mg PO DAILY PRN (Reason: Heartburn) Date of admission: 01/04/23 16:01 Primary Care Provider: Shelley,Eladia Thompson Admitting Provider: Kaushik Breaux Attending physician on admission: Kaushik Breaux Condition: Stable
[2023-01-05] MEDS: BENZOCAINE 20% AER SPR (*SP) 56 GM CAN 1 SPRAY TOPICAL (10:58)
[2023-01-05] MEDS: WITCH HAZEL 40 PADS 1 PAD TOPICAL (10:58)
[2023-01-05] MEDS: ACETAMINOPHEN 325 MG TABLET 650 MG PO (11:49)
[2023-01-05] MEDS: LANOLIN (LANSINOH) 7.5 GM CREAM 1 APPLIC TOPICAL (11:50)
--- NOTE | 2023-01-05 13:11 | PC.NURSE ---
Patient transferred to post room #277 via wheelchair. Support person present. Oriented to unit, room, information board, rooming in, admission packet and security measures. Patient verbalizes understanding.
[2023-01-05 13:48] LABS: Rapid Plasma Reagin Non-Reactive (NonReactive)
[2023-01-05] MEDS: HYDROcodone/acetaminophen (*CRX) 5-325 MG TABLET 1 TAB PO ×3 (14:08→23:38)
[2023-01-06] MEDS: HYDROcodone/acetaminophen (*CRX) 5-325 MG TABLET 1 TAB PO ×3 (05:17→12:52)
[2023-01-06 06:03] LABS: Hematocrit 31.5 % (37.0-47.0); Hemoglobin 9.8 g/dL (12.0-15.0)
[2023-01-06 07:45] VITALS: BP 125/71; PULSE 96; RESP 18; TEMP 36.5; O2SAT 99
--- NOTE | 2023-01-06 08:42 | WPDANLDPN2 ---
Anes-Prog Note L&D Date/Time: 01/06/23 08:42 Comfortable throughout: labor and delivery Neuraxial method: epidural Epidural/Spinal procedure site: clean & non-tender Neuro status: Neuro function grossly intact. Cardiovascular status: normal Respiratory status: normal Airway patency: baseline Mental status: baseline Post-Op hydration status: normal Vital Signs: Last Vital Signs Temp 36.7 C 01/05/23 23:24 Pulse 88 01/05/23 23:24 Resp 16 01/05/23 23:24 BP 114/70 01/05/23 23:24 Pulse Ox 98 01/05/23 23:24 O2 Del Method Room Air 01/04/23 17:00 Pain score (VAS): 2/10 Post-procedural complaints: none Patient feedback: Patient satisfied with anesthetic care.
[2023-01-06] MEDS: MULTIVIT/MIN/PREN/FOL AC/IRON TABLET 1 TAB PO (08:44)
[2023-01-06] MEDS: POLYSACCHARIDE IRON COMPLEX 150 MG CAPSULE PO (08:45)
[2023-01-06] MEDS: ESCITALOPRAM OXALATE 10 MG TABLET 30 MG PO (08:46)
[2023-01-06] MEDS: DOCUSATE SODIUM 100 MG CAPSULE PO (08:53)
--- NOTE | 2023-01-06 09:09 | PM.OBPNVD ---
OB - PN: Subj Subjective Date/time seen: 01/06/23 09:09 Narrative: Pain OK. Would like circumcision for son. Would like to go home. OB - PN: Obj Data Labs 01/06/23 05:29 Labs: Laboratory Results - last 24 hr 01/04/23 01/06/23 16:40 05:29 Hgb 9.8 L Hct 31.5 L RPR Non-reactive OB - PN A/P Plan Comments: A: PPD#1, doing well. P: Reviewed circ. Home to f/u 6 weeks. Exam Psych: Other: AVSS ABD soft, nontender, fundus firm EXT nontender
--- NOTE | 2023-01-06 13:28 | PC.NURSE ---
Patient viewed the discharge video Mother & Baby Care, The First Two Weeks . Patient was given the opportunity and encouraged to ask questions. Patient verbalized understanding of information shared and has been given the mother/baby guide for home reference.
--- NOTE | 2023-01-06 13:49 | PC.NURSE ---
[id number] Introductions were made, then consulted with patient to assess needs related to . Mother led the conversation with her?plans to feed?her infant, the?experience so far and her history. She has used a nipple shield, a syringe and states infant latched well for the first feeding. Mother works well with her with encouragement and education. Encouraged understanding of the benefits of skin to skin (demonstrating unwrapping infant and placing upright on her chest), stimulating with massage touch, changing positions to encourage wakefulness, how to watch for early feeding cues, responsive feeding, feeding on demand (aiming for 8-12 times in 24 hours, about every 2-3 hours), milk production, building/maintaining a milk supply, duration of feeding, signs of adequate intake/output and how to record on the feeding sheet. Reviewed positioning and ear, shoulder, hip alignment, supporting the breast to facilitate a deep latch, asymmetrical latch (off-center), leading with the chin with a big, open, wide gape and body close to mother. latched optimally to the right breast in cross cradle position. Education given to mother of how to visualize suck/swallow ratios and listen for drinking at the breast. was able to maintain latch without discomfort to mother. Nipple care reviewed with optimal latch and good positioning. Reviewed good handwashing when or touching the breast/nipples to prevent infection. Resources used to facilitate learning were used with the tool, mom and baby guide. Mother voiced understanding of skin to skin, stimulating with massage touch, responsive feedings, hand expressed colostrum, talking to infant to encourage if it has been 2 -2.5 hours since the start of the last , to call if infant does not latch, or if there is discomfort with . Resources provided for inpatient/outpatient with the feeding sheet, name written on the communication board and the mom/baby guide. Parents voiced understanding of information, demonstrated learning and will call if there is a request for assistance. Reported to the Primary RN.
[2023-01-07 14:53] VITALS: BP 125/71; PULSE 97; RESP 18; TEMP 37; O2SAT 99
== END 2023-01-06 16:00 | disposition home or self-care (01) | DRG 807 ==
LOC: ANHLDR 01-05 09:11 → ANHOB2 01-05 11:21
PROVIDERS: Admitting Provider Obstetrics & Gynecology; PCP Family Medicine; Visit Provider Obstetrics & Gynecology
DX: O99.824 Streptococcus B carrier state complicating childbirth (principal); Z37.0 Single live birth; Z3A.39 39 weeks gestation of pregnancy; O70.1 Second degree perineal laceration during delivery
CPT/HCPCS: 36415; 85014; 85018; 85025; 86592; 86850; 86900; 86901; A9270; J0290; J2590; J2795; J3010; J7120

== ENCOUNTER 2023-05-26 10:00 | Outpatient (RCR) | payer BC, SELFPAY ==
--- NOTE | 2023-03-14 14:24 | OPREHPOC ---
Outpatient Therapy Plan of Care This is a Multidisciplinary Plan of Care that may contain components documented by all disciplines (PT, OT, and ST.) PT Problem 1 PT Problem #1 Knowledge Deficit PT Goal 1 Goal 1. Patient will perform independent HEP Target Visit 12 PT Problem 2 PT Problem #2 Pain PT Goal 1 Goal 1. Patient will be able to do all typical ADL's with pain no higher than 2/10 Target Visit 12 PT Problem 3 PT Problem #3 Impaired Strength PT Goal 1 Goal 1. Improve windy hip abduction and extension to 5/5 to perform lifting and squatting activities 2. Improve diastasis closure to less than 2 finger width Target Visit 12
--- NOTE | 2023-03-14 14:24 | PTOPEVAL1 ---
Assessment and note entered by Josefina Gray DPT Evaluation Information Assessment Status Evaluation Subjective Information Pt is 9 weeks after her second baby. Pt reports feeling a lot of weakness and low ab/hip discomfort with certain activities, like stairs, getting in/out of bed or a car, carrying her child , squatting. Highest pain 6/10 and lowest 0-1/10. Urinary incontinence but not daily. Urinates 5 times a day, usually none at night. Can hold urge to void as long as needed. Denies pain with urination. BM usually daily, some pain and reports hemorrhoids. No significant history of pelvic pain, did have tearing with deliveries that caused pain for a short time. Pt has had 2 vaginal deliveries. 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 Patient goal: get rid of pain, build strength back up. Pt will be going back to work in 3 weeks. Returns to [place] in a few weeks. Reported Pain Level Pain Score 0: Self Report Assessment PT Clinical Summary The patient is presenting to skilled therapy with reports of low abdomen and hip pain at 9 weeks . She presents with significantly decreased hip, core, and pelvic floor strength which are contributing to her difficulty with activities like car transfers and carrying her children. She will highly benefit from therapy to address these impairments in order to reduce pain and return to full function. Plan of Care Interventions Electrical Stimulation,Hot Pack/Cold Pack,Manual Therapy,Neuro Re-education,Patient/Caregiver Education,Therapeutic Activities,Therapeutic Exercise PT Services Indicated Yes Treatment Frequency and 1-2 times a week for 6-12 visits Duration These treatments will address the objective and functional deficits as defined above. The patient will be advanced safely and appropriately in order for the patient to progress towards his/her prior level of function. Additional exercises will be introduced and as well as a comprehensive home exercise program upon discharge, if needed, ?to ensure carryover of functional gains achieved in the clinic. This treatment plan has been reviewed and agreement upon by the patient.
--- NOTE | 2023-03-21 09:37 | PCPTNOTE ---
Patient canceled appointment on 03/21/23 due to weather.
--- NOTE | 2023-04-14 08:04 | PCPTNOTE ---
Patient called to cancel appointment 04/14/23 due to personal conflict.
--- NOTE | 2023-04-21 09:15 | PCPTNOTE ---
Patient called to cancel appointment 04/21/23 due to sick kids.
--- NOTE | 2023-04-28 13:10 | OPREHPOC ---
Outpatient Therapy Plan of Care This is a Multidisciplinary Plan of Care that may contain components documented by all disciplines (PT, OT, and ST.) PT Problem 1 PT Problem #1 Knowledge Deficit PT Goal 1 Goal 1. Patient will perform independent HEP Target Visit 12 Progress Met PT Problem 2 PT Problem #2 Pain PT Goal 1 Goal 1. Patient will be able to do all typical ADL's with pain no higher than 2/10 Target Visit 12 Progress Partially Met PT Problem 3 PT Problem #3 Impaired Strength PT Goal 1 Goal 1. Improve windy hip abduction and extension to 5/5 to perform lifting and squatting activities 2. Improve diastasis closure to less than 2 finger width Target Visit 12 Progress Partially Met
--- NOTE | 2023-04-28 13:10 | PTOPPROG ---
Assessment and note entered by Josefina Gray DPT Evaluation Information Assessment Status Progress Subjective Information Pt reports highest pain in the last week 7/10, worst after being home and active and carrying her kids. Lowest pain in the last week 0/10. Pain is not as high as often and does see a difference when she is able to be consistent with her exercises. Reports no incontinence for several weeks. Denies true pelvic pain, pain is anterior hip/groin. Assessment PT Clinical Summary The patient has made good progress in therapy and reports her pain is not as high as often. She demonstrates significant improvement to her bilateral hip strength and minor closure to her diastasis recti. Due to her progress but continued pain after standing and carrying her children, she will benefit from further therapy to reduce pain and return to full function. Plan of Care Interventions Electrical Stimulation,Gait Training,Hot Pack/Cold Pack,Manual Therapy,Neuro Re-education,Patient/ Caregiver Education,Therapeutic Activities, Therapeutic Exercise PT Services Indicated Yes Treatment Frequency and 1 time a week for 4 visits Duration These treatments will address the objective and functional deficits as defined above. The patient will be advanced safely and appropriately in order for the patient to progress towards his/her prior level of function. Additional exercises will be introduced and as well as a comprehensive home exercise program upon discharge, if needed, ?to ensure carryover of functional gains achieved in the clinic. This treatment plan has been reviewed and agreement upon by the patient.
--- NOTE | 2023-05-26 10:31 | PTOPDC ---
Assessment and note entered by Josefina Gray DPT Evaluation Information Assessment Status Discharge Subjective Information Highest pain in last week 6/10 and lowest 0/10. Pain daily at some point. Does feel that her pain is not as often or lasting as long. Less pain with navigating stairs. Still having some pain getting up and down from the floor or lifting her kids from the floor. Less difficulty with holding and walking with her kids. Feels confident with discharge to [facility] after this visit. Reported Pain Level Pain Score 0: Self Report Assessment PT Clinical Summary The patient has continued to make good progress in therapy and overall reports decreased pain and it does not last as long when it does occur. Less difficulty/pain navigating stairs. She demonstrates improved hip and core strength and improved diastasis closure. Due to her progress and independence with [facility], plan to discharge at this time. She has been educated to follow up with MD and/or PT as needed. Plan of Care PT Services Indicated No
== END 2023-05-26 12:59 | disposition home or self-care (01) ==
LOC: ANHPT 10:00
PROVIDERS: PCP Family Medicine; Visit Provider Obstetrics & Gynecology
DX: R10.2 Pelvic and perineal pain (principal)
CPT/HCPCS: 97110; 97112; 97161; 97530